=== PATIENT | male | born 1930 | race Caucasian/White ===

== ENCOUNTER 2018-06-17 08:51 | Inpatient (IN) | payer BC, MEDICARE ==
[2018-06-17] MEDS ORDERED: MORPHINE SULFATE 2 MG/ML DISP.SYRIN IV ONE (09:01)
[2018-06-17] MEDS ORDERED: MORPHINE SULFATE 2 MG/ML DISP.SYRIN ONE (09:03)
[2018-06-17 09:15] LABS: Hematocrit 32.1 % (42.0-52.0); Hemoglobin 10.6 gm/dL (13.5-18.0); Mean Cell Volume 87.5 fl (78-100); Mean Corpuscular Hemoglobin 28.9 pg (27-31); Mean Platelet Volume 8.8 fl (8-11.3); Neutrophil # 3.6 K/mm3 (1.3-6.0); Neutrophil % 57.7 % (42-75.0); Platelet Count 213 K/mm3 (150-450); Red Blood Count 3.67 M/mm3 (4.7-6.0); Red Cell Distribution Width 13.6 % (11.5-14.0); White Blood Count 6.2 K/mm3 (4.0-10.5)
[2018-06-17 09:27] LABS: Prothrombin Time (Patient) 10.4 Seconds (9.0-11.0)
[2018-06-17 09:30] LABS: Albumin * 2.9 gm/dl (3.4-5.0); Anion Gap 11.8 mmol/L (6.8-13.8); BUN/Creatinine Ratio 11.5 (9.0-21.6); Bilirubin, Total 0.6 mg/dL (0.0-1.1); Ca. Corrected For Albumin 8.8 mg/dL (8.4-10.2); Calcium * 8.2 mg/dL (7.9-10.9); INR 1.04 INR (0.90-1.10); Partial Thrombolplastin Time 26.3 Seconds (24-32); Potassium 3.8 mmol/L (3.4-4.6); Total Protein 6.6 gm/dL (6.2-8.2)
--- NOTE | 2018-06-17 09:51 | ERNOTE ---
Lower Extremity HPI - Narrative Date of Service: 06/17/18 - General Lower Extremities Pain: hip: right - fall Time Seen by Provider: 06/17/18 09:00 Source: patient, family Exam Limitations: no limitations - Immun/Allergies/Home Medications Immunizations: IMMUNIZATION HX Immunizations Up to Date Yes History of Influenza Vaccine Yes Allergies/Adverse Reactions: Allergies Allergy/AdvReac Type Severity Reaction Status Date / Time pravastatin [From Pravachol] AdvReac Intermediate vertigo Verified 06/17/18 09: 00 Home Medications: HOME MEDICATIONS Tamsulosin HCl 0.8 mg PO HS 05/26/14 [Last Taken Unknown] cyanocobalamin (vit B-12) 1,000 mcg capsule 1,000 mcg PO DAILY 05/30/18 [Last Taken Unknown] donepezil 10 mg tablet 10 mg PO HS 05/30/18 [Last Taken Unknown] folic acid 1 mg tablet 1 mg PO DAILY 06/06/18 [Last Taken Unknown] - History of Present Illness Narrative: patient slipped and fell this am. c/o r hip pain Occurred: just prior to arrival Location of Incident: home Method of Injury: Reports: fell Reason for Fall: Reports: lightheaded, lost balance, slipped Loss of Consciousness: Reports: no loss of consciousness Modifying Factors - (Improves): Reports: pain medication, rest Modifying Factors - (Worsens): Reports: movement Associated Symptoms: Reports: unable to bear weight Other Injuries: Reports: none Review of Systems - Narrative Narrative: unremarkable - Review of Systems Constitutional: Present: See HPI EYE: Present: no symptoms reported ENT: Present: no symptoms reported Respiratory: Present: no symptoms reported Cardiology: Present: no symptoms reported Gastrointestinal/Abdominal: Present: no symptoms reported Genitourinary: Present: no symptoms reported Musculoskeletal: Present: See HPI, joint pain, joint swelling Skin: Present: no symptoms reported Neurological: Present: no symptoms reported Endocrine: Present: no symptoms reported Hematologic/Lymphatic: Present: no symptoms reported Psych: Present: no symptoms reported All Other Systems: All systems neg except as marked Medical History (Last Reviewed 06/17/18 @ 09:00 by Juli Jameson RN) Foot pain, bilateral (Acute) Arthritis (Acute) Difficulty walking (Acute) Onychomycosis (Acute) Pes planus (Acute) Bronchitis Onset Date: Unknown COPD (chronic obstructive pulmonary disease) Onset Date: Unknown Dementia Onset Date: Unknown Diverticulosis Onset Date: 2002 Hearing loss Onset Date: Unknown Hemorrhoids Onset Date: Unknown Hyperlipidemia Onset Date: Unknown Hypertension Onset Date: Unknown Subarachnoid hemorrhage Onset Date: Unknown Urinary frequency Onset Date: 03/16/12 orthopedic injuries Onset Date: Unknown Fracture Surgical History: Surgical History (Last Reviewed 06/17/18 @ 09:00 by Juli Jameson RN) H/O angioplasty Onset Date: 2003 H/O cystoscopy Onset Date: 2004 History of colonoscopy Onset Date: 2005 History of esophagogastroduodenoscopy (EGD) Onset Date: 2005 History of prostate surgery Onset Date: 2004 Social History: Preferred Language Divehi Do you have any judaism or No cultural preference? Smoking Status Former smoker Abuse History No History of abuse Psych History No pertinent hx Alcohol Use none Drug Use none Physical Exam - Physical Exam General Appearance: Present: moderate distress Head Exam: Present: normal inspection, no evidence of injury Eye Exam: Normal inspection: bilateral, PERRL: bilateral, EOMI: bilateral Ears, Nose, Throat: Present: normal ENT inspection, normal pharynx Neck: Present: normal inspection, nontender Respiratory: Present: no respiratory distress, normal breath sounds Cardiovascular/Chest: Present: regular rate, rhythm, no murmur, normal peripheral pulses Gastrointestinal/Abdominal: Present: normal bowel sounds, nontender, nondistended, soft, no organomegaly Back Exam: Present: normal inspection, normal range of motion, no CVA tenderness , no vertebral tenderness Extremity Exam: Present: normal except - - pain and deformity right hip Neurological Exam: Present: alert, oriented, normal mood/affect, no motor/ sensory deficits Skin Exam: Present: normal color, warm/dry Lymphatic Exam: Present: no adenopathy ED Progress - Date and Time Seen: Date and Time: 06/17/18 09:49 condition unchanged, case discussed with dr stapleton and dr tyson, to be admitted - Results and Orders Patient's Lab Results:: I have reviewed the patient's lab results. - Vital Signs Patient's Vital Signs:: I have reviewed the patient's vital signs. Vital Signs: Vital Signs 06/17/18 08:55 Temperature 35.8 C L Pulse Rate 54 L Respiratory Rate 18 Blood Pressure 133/64 O2 Sat by Pulse Oximetry 96 - EKG EKG: NSR - X-Ray X-Ray #1 X-Ray: hip - right hip fracture, cxr no acute process Interpretation: Interp. by me - Progress/Reassessment Chief Complaint: Hip Pain/Injury Progress:: Unchanged - Transfer of Care Expected Disposition: Admit Plan - Plan Plan: to be admitted Departure Clinical Impression: Closed hip fracture requiring operative repair - Departure Disposition: Still a patient Condition: Serious Referrals: Corky Marquez MD [Primary Care Provider] -
[2018-06-17] MEDS ORDERED: MORPHINE SULFATE 4 MG/ML SYRG IV PRN (09:56)
[2018-06-17] MEDS ORDERED: NORMAL SALINE 1,000 ML IV PRN ×2 (09:56→23:00)
[2018-06-17] MEDS: MORPHINE SULFATE 2 MG/ML DISP.SYRIN IV PRN ×2 (11:10→13:32)
[2018-06-17] MEDS ORDERED: ACETAMINOPHEN 325 MG TABLET PO PRN ×2 (14:00→14:22)
[2018-06-17] MEDS: HYDROcodone/ACETAMINOPHEN 1 EACH TABLET PO PRN ×3 (15:00→23:14)
[2018-06-17] MEDS: DONEPEZIL HCL 10 MG TABLET PO SCH (21:08)
--- NOTE | 2018-06-17 21:09 | HP ---
Chief Complaint - Chief Complaint Date of Service: 06/17/18 Time of Service: 20:53 Chief Complaint: Right Hip pain History of Present Illness: 88 years old male adm to the hospital with reports of right hip pain. information obtained from daughter who is at the bedside. Per daughter pt normally sleep very late during the day, but this morning he woke up and was walking down the [address] when he fell. He had fallen in the past but never had a fracture. At the time of incident he denies head injury, dizziness, shortness of breath, chest pain or palpitation to his family. Patient said he was using his cane and don't know what happen. The fall was not witness, his was at home when she heard the sound and went to him. PMH significant for Dementia, Hypertension, unsteady gait and hyperlipidemia and subarachnoid Hemorrhage 20yrs ago. In ER X-ray Hip:Displaced possibly comminuted intertrochanteric fracture of the right femur. There is decreased bony mineralization. No dislocation. There is degenerative change.Daughter stated pt had EKG on ---Sinus [place] occasion PVC confirmed by Dr Marquez. Repeated EKG: NSR, No ST elevation.Plan of care discussed with pt daughter, she verbalized understanding and agrees. He his is appropriate for plan surgical intervention: RCRI 0.9% risk of major cardiac event. Medical History (Last Reviewed 06/17/18 @ 09:00 by Juli Jameson RN) Foot pain, bilateral (Acute) Arthritis (Acute) Difficulty walking (Acute) Onychomycosis (Acute) Pes planus (Acute) Bronchitis Onset Date: Unknown COPD (chronic obstructive pulmonary disease) Onset Date: Unknown Dementia Onset Date: Unknown Diverticulosis Onset Date: 2002 Hearing loss Onset Date: Unknown Hemorrhoids Onset Date: Unknown Hyperlipidemia Onset Date: Unknown Hypertension Onset Date: Unknown Subarachnoid hemorrhage Onset Date: Unknown Urinary frequency Onset Date: 03/16/12 orthopedic injuries Onset Date: Unknown Fracture Surgical History: Surgical History (Last Reviewed 06/17/18 @ 09:00 by Juli Jameson RN) H/O angioplasty Onset Date: 2003 H/O cystoscopy Onset Date: 2004 History of colonoscopy Onset Date: 2005 History of esophagogastroduodenoscopy (EGD) Onset Date: 2005 History of prostate surgery Onset Date: 2004 Family History: Family History (Last Updated 06/17/18 @ 21:43 by TRINITY Styles) Other unknown Social History: Patient Lives/Resources With Spouse 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 Smoking Status Former smoker Have you smoked in the past 12 No months Do you dip or chew tobacco No Abuse History No History of abuse Psych History No pertinent hx Alcohol Use none Drug Use none Review Of Systems (GEN) - Review of Systems Generalized/Overall Review: Present: No Symptoms Reported EENTM: Present: No Symptoms Reported Respiratory: Present: No Symptoms Reported Cardiac: Present: No Symptoms Reported Abdominal: Present: No Symptoms Reported Genitourinary: Present: Incontinent Musculoskeletal: Present: Muscle Pain, Other - right hip pain, lower back pain Neurological: Present: No Symptoms Reported Skin: Present: Bruising Endocrine: Present: No Symptoms Reported Immunizations: IMMUNIZATION HX Immunizations Up to Date Yes History of Influenza Vaccine Yes Allergies/Adverse Reactions: Allergies Allergy/AdvReac Type Severity Reaction Status Date / Time pravastatin [From Pravachol] AdvReac Intermediate vertigo Verified 06/17/18 09: 00 Home Medications: HOME MEDICATIONS donepezil 10 mg tablet 10 mg PO HS 05/30/18 [Last Taken Unknown] Tamsulosin HCl [Flomax] 0.8 mg PO HS 06/17/18 [Last Taken Unknown] Exam - Exam Vital Signs: Vital Signs - Last Taken Temp 37.3 C 06/17/18 20:20 Pulse 76 06/17/18 20:20 Resp 20 06/17/18 20:20 BP 142/61 06/17/18 20:20 Pulse Ox 94 06/17/18 20:20 Constitutional: Present: Cooperative, No distress, Elderly ENT Exam: Present: hard of hearing Eye Exam: bilateral eye: normal inspection Neck: Present: full range of motion Back Exam: Present: decreased range of motion, muscle spasm Breasts: Present: Exam deferred Respiratory: Present: chest non-tender, lungs clear, normal breath sounds, no respiratory distress Cardiovascular/Chest: Present: normal peripheral pulses, regular rate, rhythm, no chest tenderness, no edema Peripheral Pulses: dorsalis-pedis (R): 2+, dorsalis-pedis (L): 2+ Abdomen: Present: Normal bowel sounds, soft, nontender, nondistended /Rectal: Present: Other - luna cath Extremity: Present: other - right hip pain, limited range of motion right limb Neurologic: Present: alert, normal mood/affect Appearance: Present: disheveled, impaired insight, impaired recent memory Eye contact: Present: cooperative, good eye contact, belligerent Thoughts: Present: normal mood /affect Diagnostic Studies: Abnormal Lab Results 06/17/18 06/17/18 Range/Units 09: 09:09 RBC 3.67 L (4.7-6.0) M/mm3 Hgb 10.6 L (13.5-18.0) gm/dL Hct 32.1 L (42.0-52.0) % Monocytes % 12.0 H (0.0-9) % ALT 17 L (19-67) U/L Albumin 2.9 L (3.4-5.0) gm/dl Laboratory Results WBC 6.2 K/mm3 (4.0-10.5) 06/17/18 09:09 RBC 3.67 M/mm3 (4.7-6.0) L 06/17/18 09:09 Hgb 10.6 gm/dL (13.5-18.0) L 06/17/18 09:09 Hct 32.1 % (42.0-52.0) L 06/17/18 09:09 MCV 87.5 fl (78-100) 06/17/18 09:09 MCH 28.9 pg (27-31) 06/17/18 09:09 MCHC 33.0 g/dl (32-36) 06/17/18 09:09 RDW 13.6 % (11.5-14.0) 06/17/18 09:09 Plt Count 213 K/mm3 (150-450) 06/17/18 09:09 MPV 8.8 fl (8-11.3) 06/17/18 09:09 Immature Gran % (Auto) 0.20 % (0.001-0.429) 06/17/18 09:09 Immature Gran # (Auto) 0.01 K/mm3 (0.000-0.0310) 06/17/18 09:09 Neutrophils % 57.7 % (42-75.0) 06/17/18 09:09 Lymphocytes % 26.9 % (20-51) 06/17/18 09:09 Monocytes % 12.0 % (0.0-9) H 06/17/18 09:09 Eosinophils % 2.9 % (0.0-3.0) 06/17/18 09:09 Basophils % 0.3 % (0.0-1.0) 06/17/18 09:09 Nucleated RBC % 0.0 k/mm3 (0-1) 06/17/18 09:09 Neutrophils # 3.6 K/mm3 (1.3-6.0) 06/17/18 09:09 Lymphocytes # 1.66 k/mm3 (1.5-3.5) 06/17/18 09:09 Monocytes # 0.7 k/mm3 (0.0-1.0) 06/17/18 09:09 Eosinophils # 0.2 k/mm3 (0.0-0.7) 06/17/18 09:09 Absolute Basophils 0.0 k/mm3 (0.0-0.1) 06/17/18 09:09 PT 10.4 Seconds (9.0-11.0) 06/17/18 09:09 INR (Anticoag Therapy) 1.04 INR (0.90-1.10) 06/17/18 09:09 PTT ([place]) 26.3 Seconds (24-32) 06/17/18 09:09 Sodium 138 mmol/L (132-142) 06/17/18 09:09 Plasma Sodium 138 mmol/L (130-142) 06/17/18 09:09 Potassium 3.8 mmol/L (3.4-4.6) 06/17/18 09:09 Chloride 104 mmol/L (97-106) 06/17/18 09:09 Carbon Dioxide 26.0 mmol/L (24-32.6) 06/17/18 09:09 Anion Gap 11.8 mmol/L (6.8-13.8) 06/17/18 09:09 BUN 11 mg/dL (6-23) 06/17/18 09:09 Creatinine 0.96 mg/dL (0.4-1.4) 06/17/18 09:09 Est GFR (Non-Af Amer) 79 mL/min (60-130) 06/17/18 09:09 BUN/Creatinine Ratio 11.5 (9.0-21.6) 06/17/18 09:09 Random Glucose 108 mg/dL (70-110) 06/17/18 09:09 Calcium 8.2 mg/dL (7.9-10.9) 06/17/18 09:09 Calcium Adj for Albumin 8.8 mg/dL (8.4-10.2) 06/17/18 09:09 Total Bilirubin 0.6 mg/dL (0.0-1.1) 06/17/18 09:09 AST 16 U/L (0-48) 06/17/18 09:09 ALT 17 U/L (19-67) L 06/17/18 09:09 Alkaline Phosphatase 109 U/L (50-170) 06/17/18 09:09 Total Protein 6.6 gm/dL (6.2-8.2) 06/17/18 09:09 Albumin 2.9 gm/dl (3.4-5.0) L 06/17/18 09:09 X-Ray Right Hip:Displaced possibly comminuted intertrochanteric fracture of the right femur. There is decreased bony mineralization. No dislocation. There is degenerative change. CXR: No acute cardiopulmonary findings Assessment/Plan - Assessment/Plan (1) Closed hip fracture requiring operative repair Assessment: X-Ray Hip:Displaced possibly comminuted intertrochanteric fracture of the right femur. There is decreased bony mineralization. No dislocation. There is degenerative change. Ortho consulted and plan for surgery tomorrow Keep NPO and bed rest tonight IV pain medications pt is appropriate for plan surgical intervention: RCRI 0.9% risk of major cardiac event Problem: Acute (2) Difficulty walking Problem: Chronic (3) Dementia Problem: Chronic
--- NOTE | 2018-06-18 06:03 | PN ---
Progess Note - Interim Date: 06/18/18 Time: 02:00 Narrative: 06/18/18 06:01 patient was seen stable and having conversation with nurses and daughter. He had leaking around luna cath, balloon of cath re-inflated. Pt continue to leak therefore catheter was changed. patient had only 200ml urine out-put and bladder scan yield 0. continue to monitor pt.
[2018-06-18] MEDS: PANTOPRAZOLE SODIUM 40 MG in NORMAL SALINE 100 ML IV SCH (07:05)
[2018-06-18] MEDS: HYDROcodone/ACETAMINOPHEN 1 EACH TABLET PO PRN ×4 (07:07→22:42)
[2018-06-18] MEDS ORDERED: ceFAZolin SODIUM 1 GM VIAL IV PRN (07:44)
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
--- NOTE | 2018-06-18 08:36 | PN ---
Subjective - Date and Time Seen Date: 06/18/18 Time: 08:27 Subjective Narrative: Patient AAO x 1. Afebrile. Objective - Review of Systems Generalized/Overall Review: Reports: Chills Misc: All systems neg except as marked - ROS is unreliable due to patient's dementia - Vitals Vitals: Last Vital Signs Temp 36.6 C 06/18/18 07:32 Pulse 66 06/18/18 07:32 Resp 18 06/18/18 07:32 BP 119/59 06/18/18 07:32 Pulse Ox 93 06/18/18 07:32 - Abnormal Lab Findings Abnormal Lab Findings: Abnormal Lab Results 06/17/18 06/17/18 Range/Units 09:09 09:09 RBC 3.67 L (4.7-6.0) M/mm3 Hgb 10.6 L (13.5-18.0) gm/dL Hct 32.1 L (42.0-52.0) % Monocytes % 12.0 H (0.0-9) % ALT 17 L (19-67) U/L Albumin 2.9 L (3.4-5.0) gm/dl - Exam Constitutional: Present: Alert - AAO X 1, Elderly ENT Exam: Present: hard of hearing Neck: Present: supple Respiratory: Present: normal breath sounds, No rales, No wheezing Cardiovascular/Chest: Present: regular rate, rhythm - with premature beats, no JVD, no murmur Abdomen: Present: Normal bowel sounds, soft, nontender, nondistended Extremity: Present: no pedal edema, no calf tenderness Cauti Physician Documentation - Urinary Catheter Management Urethral ([place]) Date of Insertion: 06/17/18 Time of Insertion: 12:30 Assessment/Plan - Problems/Diagnosis (1) Intertrochanteric fracture of right femur Problem: Acute Qualifiers: Encounter type: initial encounter Fracture type: closed Fracture alignment: displaced Qualified Code(s): S72.141A - Displaced intertrochanteric fracture of right femur, initial encounter for closed fracture Narrative: for CRIF today. he may proceed with anticipated procedure. Will likely need NH placement for PT/OT. (2) Abrasion Problem: Acute Narrative: forehead (3) Dementia Problem: Chronic Qualifiers: Dementia type: Alzheimer's disease (4) BPH (benign prostatic hyperplasia) Problem: Chronic
[2018-06-18] MEDS: POTASSIUM CHLORIDE 10 MEQ in DEXTROSE 5%-0.5 NORMAL SALINE 995 ML IV SCH ×2 (09:30→22:49)
[2018-06-18 09:41] LABS: Urine Bilirubin Negative (NEGATIVE); Urine Blood 250 /ul (NEGATIVE); Urine Ketone Negative (NEGATIVE); Urine Nitrite Negative (NEGATIVE); Urine Protein 100 mg/dL (NEGATIVE); Urine Specific Gravity >=1.030 SP.GR. (1.005-1.030); Urine Urobilinogen Normal (NORMAL); Urine pH 5.5 pH (5.0-7.0)
[2018-06-18 09:57] LABS: Urine Appearance Slightly Cloudy (CLEAR); Urine Bacteria TRACE; Urine Color Yellow; Urine RBC 25-50 /hpf (0-5); Urine WBC 0-5 /hpf (0-5)
[2018-06-18 09:58] LABS: Urine Hyaline Cast TRACE /LPF; Urine Mucus Many - 3+
[2018-06-18] MEDS: MORPHINE SULFATE 2 MG/ML DISP.SYRIN IV PRN (10:43)
--- NOTE | 2018-06-18 10:44 | ANES ---
Anesthesia Pre Procedure Eval Vitals/Labs: Last Vital Signs Temp 36.6 C 06/18/18 08:57 Pulse 66 06/18/18 08:57 Resp 18 06/18/18 08:57 BP 119/59 06/18/18 08:57 Pulse Ox 93 06/18/18 08:57 HOME MEDICATIONS donepezil 10 mg tablet 10 mg PO HS 05/30/18 [Last Taken Unknown] Tamsulosin HCl [Flomax] 0.8 mg PO HS 06/17/18 [Last Taken Unknown] Allergies/Adverse Reactions: Allergies Allergy/AdvReac Type Severity Reaction Status Date / Time pravastatin [From Pravachol] AdvReac Intermediate vertigo Verified 06/17/18 09: 00 - Planned Procedure Planned Procedure: R Hip Fracture Medication List Reviewed:: Yes Allergies Verified: Yes Medical History (Last Reviewed 06/18/18 @ 10:42 by Lexa Boswell CRNA) Foot pain, bilateral (Acute) Arthritis (Acute) Difficulty walking (Chronic) Onychomycosis (Acute) Pes planus (Acute) Bronchitis Onset Date: Unknown COPD (chronic obstructive pulmonary disease) Onset Date: Unknown Dementia Onset Date: Unknown Diverticulosis Onset Date: 2002 Hearing loss Onset Date: Unknown Hemorrhoids Onset Date: Unknown Hyperlipidemia Onset Date: Unknown Hypertension Onset Date: Unknown Subarachnoid hemorrhage Onset Date: Unknown Urinary frequency Onset Date: 03/16/12 orthopedic injuries Onset Date: Unknown Fracture Surgical History (Last Reviewed 06/18/18 @ 10:42 by Lexa Boswell CRNA) H/O angioplasty Onset Date: 2003 H/O cystoscopy Onset Date: 2004 History of colonoscopy Onset Date: 2005 History of esophagogastroduodenoscopy (EGD) Onset Date: 2005 History of prostate surgery Onset Date: 2004 Family History (Last Reviewed 06/18/18 @ 10:42 by Lexa Boswell CRNA) Other unknown - Family Anesthesia History Family History:: no untoward family reactions to anesthesia, no familial bleeding tendencies, no family history of clotting disorders, no family history of premature - Airway/Neck/Teeth Within Normal Limits:: Yes Teeth Condition: Intact, Darkened Mallampatti Score: 2 Thyromental (T-M) distance: > 6 cm Mandibulo Hyoid distance: > 3 cm - Respiratory Respiratory: chest non-tender, decreased breath sounds, crackles Smoking Status: Former smoker Discussed smoking cessation including day of surgery: No Sleep Apnea currently treated: Yes Sleep Apnea by current assessment: Yes Discussed Risks/Treatment of RUPINDER: Yes - refuses treatment - Cardiovascular Patient History - Cardiac/Respiratory: Hyperlipidemia, Sleep Apnea Tolerates Activity: Poor - Anesthesia Assessment and Plan ASA Class: PS, III Anesthesia Type Plan: Spinal
[2018-06-18] MEDS ORDERED: RINGER'S SOLUTION,LACTATED 1,000 ML IV PRN (15:40)
[2018-06-18] MEDS ORDERED: MORPHINE SULFATE 2 MG/ML DISP.SYRIN IV PRN (16:08)
[2018-06-18] MEDS ORDERED: ONDANSETRON HCL/PF 2 MG/ML VIAL IV PRN (16:08)
[2018-06-18] MEDS ORDERED: ACETAMINOPHEN 500 MG TABLET PO PRN (16:08)
[2018-06-18] MEDS ORDERED: MAG HYDROX/ALUMINUM HYD/SIMETH 30 ML UDC PO PRN (16:08)
--- NOTE | 2018-06-18 16:11 | OR ---
Operative Report - Dictated Report Narrative: Date: 06/18/2018 Surgeon: Ahsan Zamudio M.D. Interior Decorator Paperhanging: Geoffrey Flores PA-C Preoperative diagnosis: Closed right Intertrochanteric femur fracture Postoperative diagnosis: Closed right Intertrochanteric femur fracture Operations and procedures: 1. Closed reduction, cephalo-medullary fixation right intertrochanteric femur fracture 2. Intraoperative interpretation of radiographs Anesthesia: Spinal Specimens: None Estimated blood loss: 50 Milliliters Retained implants: [employer] Trigen InterTAN 130 degree size 11.5 mm by 20 centimeter nail with 110 millimeter lag screw and 105 millimeter compression screw, with distal interlocking screw 37.5 mm Complications: None Indications for procedure: Mr. Schwartz is an 88-year-old gentleman who injured the right leg after ground-level fall at home. They were admitted to the hospital after being evaluated in the emergency department. Once the medical provider felt that they were stable for surgical treatment, the risks and benefits alternatives were discussed. The risks of , blood clots, bleeding, infection, nerve/ tendon/blood vessel injury, malunion, nonunion, failure of implants, painful implants, arthrosis, and need for additional procedures were discussed. The extremity was marked and consent was obtained on the floor. Procedure: After marking the operative extremity on the floor, the patient was taken to the operating room. A timeout was performed. IV antibiotics consisting of Ancef were administered. A spinal anesthetic was induced by anesthesia, and the patient was then placed onto a fracture table with a well-padded perineal post. The nonoperative leg was placed in a well-padded traction boot in slight extension without any traction with an SCD on the leg. The operative leg was placed in a well-padded traction boot. Longitudinal traction, internal rotation , and flexion were utilized in order to reduce the fracture. Preliminary images were attained utilizing C-arm in both the AP and lateral views. This confirmed that we had obtained adequate visualization of the fracture as well as reduction. Next the hip was then prepped and draped in a standard sterile fashion. Next the guidewire was placed percutaneously proximal to the greater trochanter to maryann a starting point at the tip of the greater trochanter centered on the lateral view. This was passed down to the level below the lesser trochanter. A scalpel was utilized in order to dissect down to the greater trochanter in order to place the soft tissue protector down to bone. The entry drill was then placed down the proximal femur to the level of the lesser trochanter. The proper size nail was then selected and impacted into place. The outrigger was utilized in order to confirm the appropriate depth of the nail. Using the alignment device on the outrigger, an incision was made over the lateral femur. Sharp dissection was carried through the iliotibial band down to the proximal femur. The guidewire was placed into the femoral head in a center-center position on AP and lateral views. The tip-apex distance of less than 25 mm combined was obtained. Once we felt that we had placed a guidewire in the appropriate position, it was measured. Next the compression screw site was drilled through the lateral femoral cortex. This was then drilled down to the appropriate depth, again confirming that we are within the confines the bone. The derotational bar was then placed and the lag screw was drilled. The lag screw was then secured in place seating fully ensuring that we were within the confines of the bone. The compression screw was then inserted allowing for compression while releasing the traction on the leg. Using C-arm this was visualized to allow for compression across the fracture site. Once is felt that we had adequately stabilized the intertrochanteric fracture, the distal interlocking screw was placed in a dynamic position. It was confirmed to be the appropriate length and within the nail on both AP and lateral views. The nail was secured allowing for controlled compression and the outrigger was removed. The wounds were then thoroughly irrigated. Final images were obtained. The hip was placed through range of motion and showed no crepitance. The deep fascia was closed with 0 Vicryl, the subcutaneous tissue with 3-0 Vicryl, and the skin was closed with jassi. Sterile dressings of Xeroform, 4 x 4, and tape were applied. All sponge, sharp, and instrument counts were correct prior to closing the wounds. The patient was then awoken and transferred to the postanesthesia care unit in stable condition.
--- NOTE | 2018-06-18 16:23 | ANES ---
Post Anesthesia Discharge - Transfer of Care Transfer of Care handoff given to nurse: Yes - Discharge from PACU Discharge from PACU when meets criteria: Yes - Comfortable in PACU.
--- NOTE | 2018-06-18 16:47 | ANES ---
Post Anesthesia Assessment - Vital Signs Vitals: Last Vital Signs Temp 36.6 C 06/18/18 16:20 Pulse 49 L 06/18/18 16:45 Resp 15 06/18/18 16:45 BP 100/49 06/18/18 16:45 Pulse Ox 98 06/18/18 16:45 Airway Patency: Normal - Mental Status Level Of Consciousness: Awake, Follows Commands - Pain Level Pain Score: 0 - N/V Assessment Nausea/Vomiting Presence: None Dehydration:: No
[2018-06-18] MEDS: ceFAZolin SODIUM 1 GM in DEXTROSE 5 % IN WATER 100 ML IV SCH ×2 (18:38)
[2018-06-18] MEDS: WARFARIN SODIUM 5 MG TABLET PO SCH (18:38)
[2018-06-18] MEDS: DONEPEZIL HCL 10 MG TABLET PO SCH (21:40)
[2018-06-18] MEDS: SENNOSIDES/DOCUSATE SODIUM 1 TAB TABLET PO SCH (21:40)
[2018-06-19] MEDS: ceFAZolin SODIUM 1 GM in DEXTROSE 5 % IN WATER 100 ML IV SCH ×4 (00:14→05:32)
[2018-06-19] MEDS: HYDROcodone/ACETAMINOPHEN 1 EACH TABLET PO PRN ×5 (02:43→20:16)
--- NOTE | 2018-06-19 04:19 | PN ---
Subjective - Date and Time Seen Date: 06/19/18 Time: 04:14 Subjective Narrative: Patient seen today POD #1, pain is well controlled and he denies shortness of breath, cough, chest pain, calf pain or palpitation. per daughter he still has pain but more so when he moves. he anticipate getting up with therapy later in the morning. Objective - Review of Systems Generalized/Overall Review: Reports: No Symptoms Reported EENTM: Reports: No Symptoms Reported Respiratory: Reports: No Symptoms Reported Cardiac: Reports: No Symptoms Reported Abdominal: Reports: No Symptoms Reported Genitourinary Symptoms: Reports: No Symptoms Reported Musculoskeletal Complaints: Reports: Muscle Pain Neurological: Reports: No Symptoms Reported Skin: Reports: No Symptoms Reported Endocrine: Reports: No Symptoms Reported - Vitals Vitals: Last Vital Signs Temp 37 C 06/18/18 21:40 Pulse 77 06/19/18 02:31 Resp 16 06/19/18 02:31 BP 112/62 06/19/18 02:31 Pulse Ox 90 L 06/19/18 02:31 - Abnormal Lab Findings Abnormal Lab Findings: Abnormal Lab Results 06/18/18 Range/Units 08:50 Urine Protein 100 H (NEGATIVE) mg/dL Urine Blood 250 H (NEGATIVE) /ul Prot Sulfosalicylic Acd 3+ H (0) mg/dL Urine RBC 25-50 H (0-5) /hpf Urine Mucus Many - 3+ H (NONE) Urine Comment Culture ordered L - Exam Constitutional: Present: Alert, Oriented x3, Cooperative, No distress, Elderly ENT Exam: Present: hard of hearing Neck: Present: full range of motion Breasts: Present: Exam deferred Respiratory: Present: chest non-tender, normal breath sounds, no respiratory distress, decreased breath sounds Cardiovascular/Chest: Present: normal peripheral pulses, regular rate, rhythm, no chest tenderness, edema Abdomen: Present: Normal bowel sounds, soft, nontender, nondistended, no rebound tenderness /Rectal: Present: Other - luna cath Extremity: Present: lower extremity edema - right leg edema, limited range of mobility closed reduction internal fixation Skin Exam: Present: normal color, warm/dry Neurologic: Present: normal mood/affect, oriented x 3 Appearance: Present: appropriate appearance Eye contact: Present: threatening eye contact Thoughts: Present: normal thought pattern, no apparent hallucination Cauti Physician Documentation - Urinary Catheter Management Urethral (Luna) Date of Insertion: 06/18/18 Time of Insertion: 12:30 Assessment/Plan - Problems/Diagnosis (1) Closed hip fracture requiring operative repair Problem: Acute Narrative: POD#1 he his S/P 1. Closed reduction, cephalo-medullary fixation right intertrochanteric femur fracture 2. Intraoperative interpretation of radiographs Secondary to right hip fracture resulting from a fall while at home. ortho following Continue with pain control PT/OT evaluation and treatment VTE ppx:Lovenox Complete SCIP protocol (2) Difficulty walking Problem: Chronic (3) Dementia Problem: Chronic Qualifiers: Dementia type: Alzheimer's disease
[2018-06-19 04:42] LABS: Hematocrit 27.1 % (42.0-52.0); Mean Cell Volume 87.1 fl (78-100); Mean Corpuscular Hemoglobin 28.9 pg (27-31); Mean Corpuscular Hgb Conc 33.2 g/dl (32-36); Mean Platelet Volume 8.9 fl (8-11.3); Platelet Count 164 K/mm3 (150-450); Red Blood Count 3.11 M/mm3 (4.7-6.0); Red Cell Distribution Width 13.6 % (11.5-14.0); White Blood Count 11.1 K/mm3 (4.0-10.5)
[2018-06-19 04:46] LABS: Anion Gap 10.7 mmol/L (6.8-13.8); BUN/Creatinine Ratio 7.4 (9.0-21.6); Calcium * 7.5 mg/dL (7.9-10.9); Carbon Dioxide 25.3 mmol/L (24-32.6); Estimated Creat Clear 50.9
[2018-06-19] MEDS: PANTOPRAZOLE SODIUM 40 MG in NORMAL SALINE 100 ML IV SCH (06:50)
[2018-06-19 07:56] LABS: Prothrombin Time (Patient) 10.6 Seconds (9.0-11.0)
[2018-06-19 08:03] LABS: INR 1.06 INR (0.90-1.10)
--- NOTE | 2018-06-19 08:23 | PN ---
Subjective - Date and Time Seen Date: 06/19/18 Time: 08:19 Subjective Narrative: Sitting in bed. Reports pain. Is confused but at baseline per daughter in room. Eating breakfast. Objective - Vitals Vitals: Last Vital Signs Temp 37 C 06/18/18 21:40 Pulse 75 06/19/18 04:00 Resp 16 06/19/18 04:00 BP 98/56 06/19/18 04:00 Pulse Ox 93 06/19/18 04:00 - Abnormal Lab Findings Abnormal Lab Findings: Abnormal Lab Results 06/18/18 06/19/18 06/19/18 Range/Units 08:50 04:15 04:15 WBC 11.1 H D (4.0-10.5) K/mm3 RBC 3.11 L (4.7-6.0) M/mm3 Hgb 9.0 L (13.5-18.0) gm/dL Hct 27.1 L (42.0-52.0) % Sodium 130 L (132-142) mmol/L BUN/Creatinine Ratio 7.4 L (9.0-21.6) Random Glucose 142 H D (70-110) mg/dL Calcium 7.5 L (7.9-10.9) mg/dL Urine Protein 100 H (NEGATIVE) mg/dL Urine Blood 250 H (NEGATIVE) /ul Prot Sulfosalicylic Acd 3+ H (0) mg/dL Urine RBC 25-50 H (0-5) /hpf Urine Mucus Many - 3+ H (NONE) Urine Comment Culture ordered L - Exam Exam Narrative: RLE - moving toes, thigh soft, dressings dry, palp DP, pain with any hip ROM Constitutional: Present: Alert Cauti Physician Documentation - Urinary Catheter Management Urethral (Valdes) Date of Insertion: 06/18/18 Time of Insertion: 12:30 Assessment/Plan - Problems/Diagnosis (1) Intertrochanteric fracture of right femur Problem: Acute Qualifiers: Encounter type: subsequent encounter Fracture type: closed Fracture alignment: displaced Fracture healing: with routine healing Qualified Code(s ): S72.141D - Displaced intertrochanteric fracture of right femur, subsequent encounter for closed fracture with routine healing Narrative: Continue WBAT, PT, ROM as juli, ice, SCDs, will need 6 weeks of DVT prophylaxis.
--- NOTE | 2018-06-19 11:18 | ANES ---
Post Anesthesia Assessment - Vital Signs Vitals: Last Vital Signs Temp 37.0 C 06/19/18 11:16 Pulse 63 06/19/18 11:16 Resp 16 06/19/18 11:16 BP 114/53 06/19/18 11:16 Pulse Ox 95 06/19/18 11:16 Airway Patency: Normal - Mental Status Level Of Consciousness: Awake, Appropriate - Pain Level Pain Score: 2 - Difficult to assess, pain expressed only on moving - N/V Assessment Nausea/Vomiting Presence: None Dehydration:: No
[2018-06-19] MEDS: POTASSIUM CHLORIDE 10 MEQ in DEXTROSE 5%-0.5 NORMAL SALINE 995 ML IV SCH (11:22)
[2018-06-19] MEDS: ENOXAPARIN SODIUM 40 MG/0.4 ML SYRG SC SCH (14:33)
[2018-06-19] MEDS: MORPHINE SULFATE 2 MG/ML DISP.SYRIN IV PRN ×3 (15:26→22:41)
[2018-06-19] MEDS: WARFARIN SODIUM 5 MG TABLET PO SCH (16:05)
[2018-06-19] MEDS: DONEPEZIL HCL 10 MG TABLET PO SCH (20:40)
[2018-06-19] MEDS: SENNOSIDES/DOCUSATE SODIUM 1 TAB TABLET PO SCH (20:40)
[2018-06-20] MEDS: POTASSIUM CHLORIDE 10 MEQ in DEXTROSE 5%-0.5 NORMAL SALINE 995 ML IV SCH (00:36)
[2018-06-20] MEDS: HYDROcodone/ACETAMINOPHEN 1 EACH TABLET PO PRN ×5 (00:39→22:48)
[2018-06-20 05:30] LABS: INR 1.69 INR (0.90-1.10)
--- NOTE | 2018-06-20 05:49 | PN ---
<Ena March - Last Filed: 06/20/18 06:46> Subjective - Date and Time Seen Date: 06/20/18 Time: 05:46 Subjective Narrative: Pt seen this morning. States he had a rough night. Pain is not well controlled. Has been able to tolerate working with PT/OT. Is awaiting placement. No other acute events overnight. Objective - Vitals Vitals: Last Vital Signs Temp 36.8 C 06/20/18 05:00 Pulse 69 06/20/18 05:00 Resp 18 06/20/18 05:00 BP 118/49 06/20/18 05:00 Pulse Ox 95 06/20/18 05:00 - Abnormal Lab Findings Abnormal Lab Findings: Abnormal Lab Results 06/20/18 Range/Units 05:21 PT 17.0 H (9.0-11.0) Seconds INR (Anticoag Therapy) 1.69 H (0.90-1.10) INR - Exam Constitutional: Present: Alert, Oriented x3, Cooperative, Mild distress, Elderly ENT Exam: Present: normal ENT inspection, hearing grossly normal Neck: Present: non-tender, full range of motion, supple Breasts: Present: Exam deferred Respiratory: Present: no accessory muscle use, No rales, No wheezing Cardiovascular/Chest: Present: normal peripheral pulses, regular rate, rhythm, no chest tenderness Abdomen: Present: Normal bowel sounds, soft, nontender /Rectal: Present: Exam deferred Extremity: Present: no pedal edema, other - RT hip surgical site Skin Exam: Present: warm/dry, no cyanosis Lymphatic: Present: no adenopathy Neurologic: Present: no motor/sensory deficits, alert, oriented x 3 Appearance: Present: appropriate appearance, appropriate insight Eye contact: Present: cooperative, good eye contact, normal speech Thoughts: Present: normal thought pattern, no apparent hallucination Cauti Physician Documentation - Urinary Catheter Management Urethral (Valdes) Date of Insertion: 06/18/18 Time of Insertion: 12:30 Assessment/Plan - Problems/Diagnosis (1) Intertrochanteric fracture of right femur Problem: Acute Qualifiers: Encounter type: subsequent encounter Fracture type: closed Fracture alignment: displaced Fracture healing: with routine healing Qualified Code(s ): S72.141D - Displaced intertrochanteric fracture of right femur, subsequent encounter for closed fracture with routine healing Narrative: POD#2 - for Closed reduction, cephalo-medullary fixation right intertrochanteric femur fracture. Ortho following, continue with their recommendations PT/OT, Anticoagulation, bowel regimen, pain control. Is awaiting placement. (2) BPH (benign prostatic hyperplasia) Problem: Chronic (3) Arthritis Problem: Acute <Corky Marquez - Last Filed: 06/20/18 08:50> Objective - Vitals Vitals: Last Vital Signs Temp 36.8 C 06/20/18 07:28 Pulse 69 06/20/18 07:28 Resp 18 06/20/18 07:28 BP 118/49 06/20/18 07:28 Pulse Ox 95 06/20/18 07:28 - Abnormal Lab Findings Abnormal Lab Findings: Abnormal Lab Results 06/20/18 Range/Units 05:21 PT 17.0 H (9.0-11.0) Seconds INR (Anticoag Therapy) 1.69 H (0.90-1.10) INR Assessment/Plan - Problems/Diagnosis (1) Intertrochanteric fracture of right femur Problem: Acute Qualifiers: Encounter type: subsequent encounter Fracture type: closed Fracture alignment: displaced Fracture healing: with routine healing Qualified Code(s ): S72.141D - Displaced intertrochanteric fracture of right femur, subsequent encounter for closed fracture with routine healing (2) Abrasion Problem: Acute (3) Dementia Problem: Chronic Qualifiers: Dementia type: Alzheimer's disease (4) BPH (benign prostatic hyperplasia) Problem: Chronic
[2018-06-20] MEDS: PANTOPRAZOLE SODIUM 40 MG in NORMAL SALINE 100 ML IV SCH (06:28)
[2018-06-20] MEDS: MAGNESIUM HYDROXIDE 30 ML UDC PO PRN (07:08)
--- NOTE | 2018-06-20 11:35 | PN ---
Subjective - Date and Time Seen Date: 06/20/18 Time: 11:31 Subjective Narrative: reports patient not motivated. Has been up in chair since breakfast. reports feels it time to get back into bed. He walked to the door yesterday. No nausea. Objective Objective Narrative: Patient up in chair. Bandages C/D/I. Able to wiggle toes and ankle. Calf supple. No distress. - Vitals Vitals: Last Vital Signs Temp 36.9 C 06/20/18 08:54 Pulse 75 06/20/18 08:54 Resp 18 06/20/18 08:54 BP 118/53 06/20/18 08:54 Pulse Ox 93 06/20/18 08:54 - Abnormal Lab Findings Abnormal Lab Findings: Abnormal Lab Results 06/20/18 Range/Units 05:21 PT 17.0 H (9.0-11.0) Seconds INR (Anticoag Therapy) 1.69 H (0.90-1.10) INR - Exam Constitutional: Present: Cooperative, Mild distress Cauti Physician Documentation - Urinary Catheter Management Urethral (Valdes) Date of Insertion: 06/18/18 Time of Insertion: 12:30 Assessment/Plan - Problems/Diagnosis (1) Acute blood loss anemia Problem: Acute Narrative: Observation (2) Closed hip fracture requiring operative repair Problem: Acute Narrative: PT, anticoagulation, pain control (3) Intertrochanteric fracture of right femur Problem: Acute Qualifiers: Encounter type: subsequent encounter Fracture type: closed Fracture alignment: displaced Fracture healing: with routine healing Qualified Code(s ): S72.141D - Displaced intertrochanteric fracture of right femur, subsequent encounter for closed fracture with routine healing
[2018-06-20] MEDS: ENOXAPARIN SODIUM 40 MG/0.4 ML SYRG SC SCH (14:50)
[2018-06-20] MEDS ORDERED: WARFARIN SODIUM 3 MG TABLET PO SCH (17:00)
[2018-06-20] MEDS: SENNOSIDES/DOCUSATE SODIUM 1 TAB TABLET PO SCH (20:43)
[2018-06-20] MEDS: DONEPEZIL HCL 10 MG TABLET PO SCH (20:43)
[2018-06-21] MEDS: HYDROcodone/ACETAMINOPHEN 1 EACH TABLET PO PRN ×2 (03:04→07:08)
[2018-06-21 05:35] LABS: Prothrombin Time (Patient) 20.9 Seconds (9.0-11.0)
[2018-06-21 05:36] LABS: INR 2.07 INR (0.90-1.10)
[2018-06-21] MEDS: PANTOPRAZOLE SODIUM 40 MG in NORMAL SALINE 100 ML IV SCH (06:57)
[2018-06-21] MEDS: MAGNESIUM HYDROXIDE 30 ML UDC PO PRN (06:58)
--- NOTE | 2018-06-21 08:40 | DS ---
(1) Intertrochanteric fracture of right femur Problem: Acute Qualifiers: Encounter type: subsequent encounter Fracture type: closed Fracture alignment: displaced Fracture healing: with routine healing Qualified Code(s ): S72.141D - Displaced intertrochanteric fracture of right femur, subsequent encounter for closed fracture with routine healing (2) Abrasion Problem: Acute (3) Dementia Problem: Chronic Qualifiers: Dementia type: Alzheimer's disease (4) BPH (benign prostatic hyperplasia) Problem: Chronic Description of Stay: Chepe davidson, is a 88 years old male, adm to the hospital on with reports of right hip pain. Information obtained from daughter who is at the bedside. Per daughter pt normally sleep very late during the day, but on the morning of admission, he woke up and was walking down the [address] when he fell. He had fallen in the past but never had a fracture. At the time of incident he denies head injury, dizziness, shortness of breath, chest pain or palpitation to his family. Patient said he was using his cane and don't know what happen. The fall was not witness, his was at home when she heard the sound and went to him. PMH significant for Dementia, Hypertension, unsteady gait and hyperlipidemia and subarachnoid Hemorrhage 20yrs ago. In ER X-ray Hip: Displaced possibly comminuted intertrochanteric fracture of the right femur. There is decreased bony mineralization. No dislocation. There is degenerative change.Daughter stated pt had EKG on ---Sinus Satinder occasion PVC confirmed by Dr Marquez. Repeated EKG: NSR, No ST elevation.Plan of care discussed with pt daughter, she verbalized understanding and agrees. He underwent CRIF of his right intertrochanteric fracture and has been undergoing PT/OT post op. He is now stable to be discharged to [place] . Procedures Performed: see notes below - CRIF with cephalomedullary fixation od intertrochanteric fracture, right hip Results and Findings: Lab Pending Results 06/17/18 09:09: WBC 6.2, RBC 3.67 L, Hgb 10.6 L, Hct 32.1 L, MCV 87.5, MCH 28.9 , MCHC 33.0, RDW 13.6, Plt Count 213, MPV 8.8, Immature Gran % (Auto) 0.20, Immature Gran # (Auto) 0.01, Neutrophils % 57.7, Lymphocytes % 26.9, Monocytes % 12.0 H, Eosinophils % 2.9, Basophils % 0.3, Nucleated RBC % 0.0, Neutrophils # 3.6, Lymphocytes # 1.66, Monocytes # 0.7, Eosinophils # 0.2, Absolute Basophils 0.0 06/17/18 09:09: PT 10.4, INR (Anticoag Therapy) 1.04, PTT (Beto) 26.3 06/17/18 09:09: Sodium 138, Plasma Sodium 138, Potassium 3.8, Chloride 104, Carbon Dioxide 26.0, Anion Gap 11.8, BUN 11, Creatinine 0.96, Est GFR (Non-Af Amer) 79, BUN/Creatinine Ratio 11.5, Random Glucose 108, Calcium 8.2, Calcium Adj for Albumin 8.8, Total Bilirubin 0.6, AST 16, ALT 17 L, Alkaline Phosphatase 109, Total Protein 6.6, Albumin 2.9 L 06/18/18 08:50: Urine Color Yellow, Urine Appearance Slightly cloudy, Urine pH 5.5, Ur Specific [place] >=1.030, Urine Protein 100 H, Urine Glucose (UA) Negative, Urine Ketones Negative, Urine Blood 250 H, Urine Nitrate Negative, Urine Bilirubin Negative, Prot Sulfosalicylic Acd 3+ H, Urine Urobilinogen Normal, Ur Leukocyte Esterase Negative, Urine RBC 25-50 H, Urine WBC 0-5, Ur Epithelial Cells 0-5, Urine Bacteria Trace, Hyaline Casts Trace, Urine Mucus Many - 3+ H, Urine Comment Culture ordered L 06/19/18 04:15: WBC 11.1 H D, RBC 3.11 L, Hgb 9.0 L, Hct 27.1 L, MCV 87.1, MCH 28.9, MCHC 33.2, RDW 13.6, Plt Count 164, MPV 8.9 06/19/18 04:15: Sodium 130 L, Plasma Sodium 131, Potassium 4.0, Chloride 98, Carbon Dioxide 25.3, Anion Gap 10.7, BUN 7, Creatinine 0.94, Est GFR (Non-Af Amer) 81, BUN/Creatinine Ratio 7.4 L, Random Glucose 142 H D, Calcium 7.5 L 06/19/18 04:15: PT 10.6, INR (Anticoag Therapy) 1.06 06/20/18 05:21: PT 17.0 H, INR (Anticoag Therapy) 1.69 H 06/21/18 05:23: PT 20.9 H, INR (Anticoag Therapy) 2.07 H Discharge Location: [facility] Disposition: SNF Condition: Poor Level of Care: SNF Discharge Activity: Activity as tolerated Discharge Diet: General/regular food Prison Therapy: Physicial Therapy, Occupation Therapy, Speech Therapy Referrals: Corky Marquez MD [Primary Care Provider] - Additional Patient Instructions (free text): [facility] at discharge SNF, please call and fax discharge orders. Dr Marquez to follow at [facility]. Prescriptions (Any new or edited meds): Acetaminophen [Tylenol] 1,000 mg PO Q6H PRN #30 tab PRN Reason: Mild Pain (Pain Scale 1-3) HYDROcodone/ACETAMINOPHEN [[place]ona 5-325] 1 ea PO Q6H #30 tab Warfarin Sodium [Coumadin] 3 mg PO DAILY@1700 #30 tab Complete Home Medications List: Complete Home Medication List: donepezil 10 mg tablet 10 mg PO HS 05/30/18 Tamsulosin HCl [Flomax] 0.8 mg PO HS 06/17/18 Acetaminophen [Tylenol] 1,000 mg PO Q6H PRN #30 tab 06/21/18 HYDROcodone/ACETAMINOPHEN [[place] 5-325] 1 ea PO Q6H #30 tab 06/21/18 Sennosides/Docusate Sodium [Senokot-S] 2 tab PO HS tablet 06/21/18 Warfarin Sodium [Coumadin] 3 mg PO DAILY@1700 #30 tab 06/21/18 Amb Orders for Discharge: Prothrombin Time Time Frame: 3 Days, Location: None Selected
[2018-06-21 09:40] VITALS: BP 134/59
== END 2018-06-21 10:40 | DRG 482 ==
LOC: ER 08:51 → MS 09:45
PROVIDERS: ADMIT Internal Medicine; ATTEND Internal Medicine
CPT/HCPCS: 36415; 71010; 71045; 73502; 76000; 80048; 80053; 81001; 85025; 85027; 85610; 85730; 87086; 93005; 96374; 97110; 97116; 97161; 97166; 97530; 99285; J2405